=== PATIENT | female | born 1940 | race Caucasian/White ===

== ENCOUNTER 2020-09-08 15:02 | Observation (INO) ==
[2020-09-08] MEDS ORDERED: Potassium Chloride Elixir 20 MEQ/15 ML UDC PO ONE (17:21)
[2020-09-08 18:16] LABS: Hemoglobin 6.8 g/dL (11.5-15.4); Mean Corpuscular Volume 95.9 fL (83.0-100.0); Red Cell Distribution Width 19.2 % (11.5-14.5)
[2020-09-08 18:18] LABS: Immature Platelets 6.9 % (1.1-6.1); Mean Corpuscular HGB Conc 32.4 g/dL (31.6-35.5); Mean Corpuscular Hemoglobin 31.1 pg (28.0-33.3); Mean Platelet Volume 11.7 fL (9.4-12.4); Nucleated Red Blood Cells 1.1 /100 WBC (0); Platelet Count 59 K/mcL (140-400); Red Blood Count 2.19 M/mcL (3.82-4.97); White Blood Count 5.2 K/mcL (4.3-11.1)
[2020-09-08 18:30] LABS: INR 1.3; Prothrombin Time 15.1 Seconds (9.4-12.1)
[2020-09-08 18:37] LABS: % Iron Saturation 44 % (15-50); Alanine Aminotransferase 5 Units/L (7-52); Albumin 2.7 g/dL (3.5-5.7); Albumin/Globulin Ratio 1.4 (1.1-2.2); Alkaline Phosphatase 107 Units/L (34-104); Aspartate Amino Transferase 12 Units/L (13-39); BUN/Creatinine Ratio 18 (6-26); Bilirubin,Direct 0.2 mg/dL (0.0-0.2); Bilirubin,Indirect 0.3 mg/dL (0.0-1.0); Bilirubin,Total 0.5 mg/dL (0.3-1.0); Blood Urea Nitrogen 10 mg/dL (8-23); Calcium 7.7 mg/dL (8.6-10.3); Carbon Dioxide 25 mEq/L (23-29); Chloride 112 mEq/L (98-107); Globulin 1.9 g/dL (2.4-3.5); Glucose 80 mg/dL (70-105); Iron 66 mcg/dL (50-170); Osmolality,Calculated 292 (280-300); Sodium 142 mEq/L (136-145); Total Protein 4.6 g/dL (6.4-8.9); Transferrin 107 mg/dL (203-362); eGFR For African Americans > 60 (> 60); eGFR For Non-African Americans > 60 (> 60)
[2020-09-08 18:50] LABS: Anisocytosis 3+ (Not Present); Eosinophils # 0.1 K/mcL (0.0-0.6); Lymphocytes # 0.5 K/mcL (0.6-4.6); Monocytes # 0.4 K/mcL (0.0-1.3); Neutrophils # 4.2 K/mcL (1.6-8.9); Platelet Estimate Decreased (Normal)
[2020-09-08 19:00] LABS: Troponin I 0.06 ng/mL (< 0.04)
[2020-09-08] MEDS ORDERED: Naloxone 0.4 MG/ML INJ IVP PRN (20:05)
[2020-09-08] MEDS ORDERED: Ondansetron 4 MG/2 ML VIAL IVP PRN (20:05)
[2020-09-08 23:19] LABS: Immature Reticulocyte % 35.4 % (11.0-38.0); Retculocyte # 0.09 M/mcL (0.05-0.10); Reticulocyte % 4.4 % (1.6-2.8)
[2020-09-08] MEDS ORDERED: D5% in Water 1,000 ML IVC PRN (23:55)
[2020-09-08] MEDS ORDERED: Dextrose Gel 15 GM/37.5 ML TUBE PO PRN ×2 (23:55)
[2020-09-08] MEDS ORDERED: *HR* Dextrose 50 % in Water (Vial) 50 ML VIAL IVP PRN (23:55)
[2020-09-08] MEDS ORDERED: Perflutren Lipid Microsphere 1.3 ML in 0.9 % Sodium Chloride 8.7 ML IVP PRN (23:56)
[2020-09-08 23:57] LABS: Thyroid Stimulating Hormone 6.84 mcIU/mL (0.340-5.600)
[2020-09-09 00:08] LABS: Vitamin B12 > 1500 pg/mL (250-1100)
[2020-09-09 00:35] LABS: Troponin I 0.06 ng/mL (< 0.04)
[2020-09-09 04:54] LABS: Red Blood Count 2.45 M/mcL (3.82-4.97)
[2020-09-09 04:56] LABS: Hematocrit 22.9 % (35.3-44.9); Hemoglobin 7.5 g/dL (11.5-15.4); Immature Platelets 5.7 % (1.1-6.1); Mean Corpuscular HGB Conc 32.8 g/dL (31.6-35.5); Mean Corpuscular Hemoglobin 30.6 pg (28.0-33.3); Mean Corpuscular Volume 93.5 fL (83.0-100.0); Mean Platelet Volume 11.2 fL (9.4-12.4); Red Cell Distribution Width 17.8 % (11.5-14.5); White Blood Count 4.5 K/mcL (4.3-11.1)
[2020-09-09 05:17] LABS: INR 1.3; Prothrombin Time 15.3 Seconds (9.4-12.1)
[2020-09-09 05:19] LABS: Activated Partial Thrombo Time 29.3 Seconds (26.0-36.0)
[2020-09-09 05:20] LABS: Alanine Aminotransferase 5 Units/L (7-52); Albumin 2.5 g/dL (3.5-5.7); Albumin/Globulin Ratio 1.3 (1.1-2.2); Alkaline Phosphatase 102 Units/L (34-104); Aspartate Amino Transferase 12 Units/L (13-39); BUN/Creatinine Ratio 15 (6-26); Bilirubin,Total 0.7 mg/dL (0.3-1.0); Blood Urea Nitrogen 8 mg/dL (8-23); Calcium 7.3 mg/dL (8.6-10.3); Carbon Dioxide 24 mEq/L (23-29); Chloride 111 mEq/L (98-107); Globulin 1.9 g/dL (2.4-3.5); Glucose 73 mg/dL (70-105); Osmolality,Calculated 291 (280-300); Potassium 3.2 mEq/L (3.5-5.1); Sodium 142 mEq/L (136-145); Total Protein 4.4 g/dL (6.4-8.9); Troponin I 0.06 ng/mL (< 0.04); eGFR For African Americans > 60 (> 60); eGFR For Non-African Americans > 60 (> 60)
[2020-09-09] MEDS ORDERED: Potassium Chloride 40 MEQ, Lidocaine 1% 2 ML in 0.9 % Sodium Chloride 500 ML IVPB ONE (06:30)
[2020-09-09] MEDS ORDERED: carvediloL 6.25 MG TABLET PO SCH (08:00)
[2020-09-09] MEDS: Insulin LISPRO 300 UNITS/3 ML VIAL SUBQ SCH ×3 (08:24→15:32)
[2020-09-09] MEDS ORDERED: levoFLOXacin 500 MG TABLET PO SCH (09:00)
[2020-09-09] MEDS ORDERED: valACYclovir 500 MG TABLET PO SCH (09:00)
[2020-09-09] MEDS ORDERED: Sulfamethoxazole/Trimeth DS 1 EACH TABLET PO SCH (09:00)
[2020-09-09] MEDS ORDERED: Famotidine 20 MG TABLET PO SCH (09:00)
[2020-09-09 11:29] VITALS: TEMP 97.8
[2020-09-09 15:01] VITALS: BP 142/67; PULSE 59; O2SAT 96
[2020-09-09 15:42] LABS: Hematocrit 22.8 % (35.3-44.9); Hemoglobin 7.5 g/dL (11.5-15.4)
[2020-09-09 15:57] LABS: BUN/Creatinine Ratio 15 (6-26); Blood Urea Nitrogen 7 mg/dL (8-23); Calcium 7.2 mg/dL (8.6-10.3); Carbon Dioxide 25 mEq/L (23-29); Chloride 112 mEq/L (98-107); Glucose 95 mg/dL (70-105); Osmolality,Calculated 290 (280-300); Sodium 141 mEq/L (136-145); eGFR For African Americans > 60 (> 60); eGFR For Non-African Americans > 60 (> 60)
[2020-09-09] MEDS ORDERED: Magnesium Oxide 400 MG TABLET PO ONE (16:30)
[2020-09-09] MEDS ORDERED: Magnesium Oxide 400 MG TABLET PO SCH (21:00)
[2020-09-10] MEDS ORDERED: Levothyroxine 25 MCG TABLET PO SCH (06:30)
== END 2020-09-09 16:36 | disposition home health service (06) ==
LOC: 2NENU 15:02 → EMEROOARM 15:02 → SUATTDRO 19:48 → 2NENU 21:40
PROVIDERS: ADMIT Internal Medicine; ATTEND Family Medicine